=== PATIENT | male | born 1990 | race African-American/Black ===

== ENCOUNTER 2016-06-20 19:02 | Emergency (ER) | payer OTHER ==
[~2016-06-20] VITALS: Ht 180.3 cm; Wt 111.4 kg
[~2016-06-20 19:02] MED LIST: AMOX500T PO; CYCL-36 PO; DICL50 PO; IBUP600 PO; IBUP600T26 PO; ROBA750T3 PO
[2016-06-20 19:38] VITALS: BP 136/84; PULSE 85; RESP 18; TEMP 98.3; O2SAT 95
[2016-06-20] MEDS ORDERED: CYCLOBENZAPRINE HCL 10 MG TAB PO ONE (19:45)
[2016-06-20] MEDS ORDERED: IBUPROFEN 800 MG TAB PO ONE (19:45)
[2016-06-20] MEDS ORDERED: CYCL1TAB29 PO (20:03)
[2016-06-20] MEDS ORDERED: IBUP800T23 PO (20:03)
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
== END 2016-06-20 20:10 | disposition home or self-care (01) ==
LOC: PHED 19:02 → PHEFT 20:10
DX: M25.511 Pain in right shoulder (principal); Z72.0 Tobacco use; Z87.39 Personal history of other diseases of the musculoskeletal system and connective tissue; V49.88XA Car occupant (driver) (passenger) injured in other specified transport accidents, initial encounter
CPT/HCPCS: 99283